=== PATIENT | male | born 1950 | race Caucasian/White ===

== ENCOUNTER 2025-05-21 22:03 | Emergency (ER) | payer MEDICARE, OTHER ==
[2025-05-21] MEDS ORDERED: Sodium Chloride 0.9% 10 ML Syringe FLUSH PRN (22:15)
[2025-05-21 22:45] LABS: PROTHROMBIN TIME 10.4 SEC (9.0-12.0); PTT,PARTIAL THROMBOPLSTIN TIME 21.6 SEC (22.0-34.0)
[2025-05-21 22:52] LABS: LACTIC ACID 2.1 mmol/L (0.4-2.0)
[2025-05-21 23:15] LABS: BASOPHILS PERCENT AUTO 0.2 % (0.0-1.0); EOSINOPHILS PERCENT AUTO 2.8 % (1.0-3.0); HEMATOCRIT 35.7 % (40.0-54.0); HEMOGLOBIN 11.7 g/dL (14.0-18.0); LYMPHOCYTES PERCENT AUTO 35.7 % (20.5-50.1); MEAN CORPUSCULAR HEMOGLOBIN 30.5 pg (27.0-34.0); MEAN CORPUSCULAR HGB CONC 32.8 g/dL (33.0-35.0); MEAN CORPUSCULAR VOLUME 93.2 fL (80-100); MONOCYTES PERCENT AUTO 11.7 % (2-8); NEUTROPHILS PERCENT AUTO 49.6 % (42.2-75.2); PLATELET COUNT,PLT 191 10^3/uL (150-450); RED BLOOD CELL COUNT 3.83 10^6/uL (4.6-6.2); WHITE BLOOD CELL COUNT,WBC 5.3 10^3/uL (5.0-10.0)
[2025-05-21 23:28] LABS: A/G RATIO 1.2; ALANINE AMINOTRANSFERASE,ALT 30 U/L (16-63); ALBUMIN 3.7 g/dL (3.4-5.0); ALKALINE PHOSPHATASE 82 U/L (46-116); ANION GAP 12.2 mEq/L (7-13); ASPARTATE AMNIOTRANSFERASE,AST 12 U/L (15-37); BILIRUBIN TOTAL 0.4 mg/dL (0.2-1.0); BLOOD UREA NITROGEN,BUN 19 mg/dL (7-18); BUN/CREATININE RATIO 16.8 (No establ ref range); CALCIUM 9.3 mg/dL (8.5-10.1); CARBON DIOXIDE,CO2 30 mmol/L (21-32); CHLORIDE,CL 101 mmol/L (98-107); CREATININE 1.13 mg/dL (0.70-1.30); GLUCOSE RANDOM 160 mg/dL (70-99); POTASSIUM,K 4.2 mmol/L (3.5-5.1); PROTEIN TOTAL,TP 6.9 g/dL (6.4-8.2); SODIUM,NA 139 mmol/L (136-145)
[2025-05-21 23:37] LABS: ESTIMATED GFR 68 mL/min (>=60)
[2025-05-21] MEDS: Sodium Chloride 0.9% 1,000 ML IV ONE (23:41)
== END 2025-05-22 01:10 | disposition home or self-care (01) ==
LOC: DL.ED 22:03
DX: H81.10 Benign paroxysmal vertigo, unspecified ear (principal); R74.02 Elevation of levels of lactic acid dehydrogenase [LDH]
CPT/HCPCS: 36415; 70450; 71045; 80053; 82947; 83605; 84484; 85025; 85610; 85730; 93005; 96360; 99284; J7030